=== PATIENT | female | born 1960 | race Caucasian/White ===

== ENCOUNTER → 2017-07-22 | Outpatient (CLI) | payer OTHER ==
[~2017-07-22] MED LIST: FOLI400T PO; HYDR-3533 PO; VITA1000 PO
[2017-07-22 11:59] LABS: AUTOMATED NEUTROPHIL # 9.8 TH/MM3 (1.8-7.7); BASOPHIL # 0.1 TH/MM3 (0-0.2); BASOPHIL % 0.6 % (0.0-2.0); EOSINOPHIL # 0.1 TH/MM3 (0-0.4); HEMATOCRIT 43.1 % (35.0-46.0); HEMO FLAGS DIFF FINAL; LYMPH % 14.2 % (9.0-44.0); LYMPHOCYTE # 1.8 TH/MM3 (1.0-4.8); MEAN CELL VOLUME 95.7 FL (80.0-100.0); MEAN CORPUSCULAR HEMOGLOBIN 32.1 PG (27.0-34.0); MEAN CORPUSCULAR HGB CONC 33.6 % (32.0-36.0); MONO % 7.3 % (0.0-8.0); NEUT % 76.9 % (16.0-70.0); PLATELET COUNT 418 TH/MM3 (150-450); RED BLOOD COUNT 4.51 MIL/MM3 (4.00-5.30); RED CELL DISTRIBUTION WIDTH 14.1 % (11.6-17.2); WHITE BLOOD COUNT 12.8 TH/MM3 (4.0-11.0)
[2017-07-22 12:09] LABS: APTT (PATIENT) 31.2 SEC (24.3-30.1); PROTHROMBIN TIME - PATIENT 11.2 SEC (9.8-11.6)
[2017-07-22 12:26] LABS: ANION GAP 6 MEQ/L (5-15); AST (GOT) 17 U/L (15-37); BICARBONATE 29.1 MEQ/L (21.0-32.0); BLOOD UREA NITROGEN 8 MG/DL (7-18); CHLORIDE 101 MEQ/L (98-107); GLOMERULAR FILTRATION RATE 110 ML/MIN (>89); GLUCOSE,FASTING 82 MG/DL (74-99); POTASSIUM 4.4 MEQ/L (3.5-5.1); SODIUM (NA) 136 MEQ/L (136-145)
[2017-07-22 12:28] LABS: ALT (GPT) 23 U/L (10-53)
[2017-07-22 12:30] LABS: ALKALINE PHOSPHATASE 93 U/L (45-117); TOTAL BILIRUBIN ADULT 0.2 MG/DL (0.2-1.0)
--- NOTE | 2017-07-23 22:03 | EKG ---
Date Performed: 07/22/2017 Time Performed: 10:23:16 PTAGE: 56 years EKG: Sinus rhythm LEFT ATRIAL ENLARGEMENT ABNORMAL ECG NO PREVIOUS TRACING DOCTOR: Bi Blakely Interpretating Date/Time 07/23/2017 21:44:39
== END ==
LOC: CPRE 09:37
PROVIDERS: ATTEND Obstetrics & Gynecology Gynecologic Oncology
DX: Z01.810 Encounter for preprocedural cardiovascular examination (principal); Z01.812 Encounter for preprocedural laboratory examination; R19.09 Other intra-abdominal and pelvic swelling, mass and lump; R94.31 Abnormal electrocardiogram [ECG] [EKG]
CPT/HCPCS: 36415; 80053; 85025; 85610; 85730; 93005

== ENCOUNTER 2017-08-02 08:07 | Inpatient (IN) | payer OTHER ==
[~2017-08-02] VITALS: Ht 172.7 cm; Wt 64.6 kg
[~2017-08-02 08:07] MED LIST changes: -HYDR-3533 PO
[2017-08-02] MEDS ORDERED: SODIUM CHLORID 0.9% 500 ML IV PRN (08:45)
[2017-08-02] MEDS ORDERED: CHLORHEXIDINE GLUCONATE 2 % 1 PACK (2 CLOTHS) TOPICAL PRN (08:45)
[2017-08-02] MEDS ORDERED: INSULIN HUMAN REGULAR 1,000 UNITS/10 ML VIAL SQ PRN (08:45)
[2017-08-02] MEDS ORDERED: METOPROLOL TARTRATE 25 MG TAB PO PRN (08:45)
[2017-08-02] MEDS ORDERED: LACTATED RINGER'S 1000 ML IV PRN (08:45)
[2017-08-02] MEDS ORDERED: POVIDONE IODINE 5% (ANTISEPSIS KIT) 4 APPLICATIONS EACH NARE PRN (08:45)
[2017-08-02] MEDS ORDERED: HEPARIN SODIUM - SQ 10,000 UNITS/ML VIAL SQ SCH (09:15)
[2017-08-02] MEDS ORDERED: LEVOFLOXACIN 500 MG PREMIX INJ 100 ML IV SCH (09:15)
[2017-08-02] MEDS ORDERED: metroNIDAZOLE 500 MG INJ 100 ML IV SCH (09:15)
[2017-08-02] MEDS ORDERED: ACETAMINOPHEN 1000 MG/100 ML 100 ML IV ONE (12:39)
[2017-08-02] MEDS ORDERED: HYDROmorphone HCL PF 2 MG/ML VIAL ONE (15:10)
[2017-08-02] MEDS ORDERED: SODIUM CHLORIDE 0.9% FLUSH 10 ML FLUSH IV FLUSH PRN ×2 (16:00→16:15)
[2017-08-02] MEDS ORDERED: diphenhydrAMINE HCL 25 MG CAP PO PRN (16:00)
[2017-08-02] MEDS ORDERED: oxyCODONE/ACETAMINOPHEN 5 MG/325 MG TAB PO PRN ×2 (16:00)
[2017-08-02] MEDS ORDERED: LORazepam 0.5 MG TAB PO PRN (16:00)
[2017-08-02] MEDS ORDERED: ONDANSETRON HCL 4 MG/2 ML VIAL IVP PRN (16:00)
[2017-08-02] MEDS ORDERED: NALOXONE HCL 0.4 MG/ML AMP IV PUSH PRN (16:15)
[2017-08-02] MEDS ORDERED: MORPHINE SULFATE 30 MG/30 ML PCA IV SCH (16:15)
[2017-08-02] MEDS ORDERED: SUGAMMADEX SODIUM 200 MG/2 ML VIAL IV PUSH ONE ×2 (16:21)
[2017-08-02] MEDS: KETOROLAC TROMETHAMINE 30 MG/ML (IVP) VIAL IVP SCH ×2 (16:50→22:06)
[2017-08-02] MEDS ORDERED: *morphine SULFATE 8 MG/ML PERIprocedure ONLY ONE ×2 (17:25→17:47)
[2017-08-02] MEDS: D5-1/2 NS + KCL 20 MEQ INJ 1,000 ML IV SCH ×2 (17:31→22:06)
[2017-08-02] MEDS ORDERED: DO NOT ADM ANY ANTICOAGULANT DRUGS PRN (17:45)
[2017-08-02 18:35] VITALS: BP 114/78; PULSE 64; RESP 16; TEMP 95.6
[2017-08-02 20:00] VITALS: BP 110/66; PULSE 70; RESP 16; TEMP 97.4; O2SAT 99
[2017-08-02 20:12] VITALS: PULSE 52
[2017-08-02] MEDS ORDERED: SODIUM CHLORIDE 0.9% FLUSH 10 ML FLUSH IV FLUSH SCH (21:00)
[2017-08-02] MEDS: PCA - TOTAL MG MORPHINE DELIVERED PER SHIFT SCH (22:00)
[2017-08-02] MEDS: SODIUM CHLORIDE 0.9% FLUSH 10 ML FLUSH IV FLUSH SCH (22:07)
[2017-08-02 23:50] VITALS: BP 124/77; PULSE 67; RESP 18; TEMP 97.6; O2SAT 98
[2017-08-03] VITALS (9 sets, daily range): BP systolic 96–136; BP diastolic 62–79; PULSE 55–68; RESP 18; TEMP 97.5–98; O2SAT 93–97
[2017-08-03] MEDS: KETOROLAC TROMETHAMINE 30 MG/ML (IVP) VIAL IVP SCH ×4 (04:00→21:13)
[2017-08-03] MEDS: PCA - TOTAL MG MORPHINE DELIVERED PER SHIFT SCH ×3 (06:00→22:00)
[2017-08-03 06:52] LABS: AUTOMATED NEUTROPHIL # 13.5 TH/MM3 (1.8-7.7); BASOPHIL % 0.2 % (0.0-2.0); HEMATOCRIT 38.8 % (35.0-46.0); HEMO FLAGS DIFF FINAL; LYMPH % 5.7 % (9.0-44.0); LYMPHOCYTE # 0.9 TH/MM3 (1.0-4.8); MEAN CELL VOLUME 95.5 FL (80.0-100.0); MEAN CORPUSCULAR HEMOGLOBIN 32.4 PG (27.0-34.0); MONO % 6.7 % (0.0-8.0); NEUT % 87.4 % (16.0-70.0); PLATELET COUNT 350 TH/MM3 (150-450); RED BLOOD COUNT 4.07 MIL/MM3 (4.00-5.30); RED CELL DISTRIBUTION WIDTH 13.9 % (11.6-17.2); WHITE BLOOD COUNT 15.5 TH/MM3 (4.0-11.0)
[2017-08-03 07:26] LABS: BICARBONATE 25.5 MEQ/L (21.0-32.0); POTASSIUM 4.3 MEQ/L (3.5-5.1)
--- NOTE | 2017-08-03 08:22 | HHI.PR ---
Subjective . c/o being tired, sore c/w surgery. no other c/o Objective . afeb vss, uop . 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 POD #1 doing well in early post-op period finding s reviewed, Q&A increase OOB, spirometry continue luis & SPOOL MAKER x 24 hours adat Maeve Balderas MD Aug 03, 2017 08:22
[2017-08-03] MEDS: D5-1/2 NS + KCL 20 MEQ INJ 1,000 ML IV SCH ×3 (08:58→22:18)
[2017-08-03] MEDS: SODIUM CHLORIDE 0.9% FLUSH 10 ML FLUSH IV FLUSH SCH ×2 (09:00→21:13)
--- NOTE | 2017-08-03 10:57 | MP ---
cc: MALCOM HOFFMAN M.D., KELLY L. MD DATE OF SURGERY: 08/02/2017 PREOPERATIVE DIAGNOSIS 1. Large complex abdominopelvic mass. 2. Right hydronephrosis. POSTOPERATIVE DIAGNOSIS 1. Large complex left ovarian mass. 2. Intraperitoneal adhesions. 3. Right hydronephrosis. PROCEDURE 1. Exploratory laparotomy. 2. Resection of a 37 cm, 18-1/2 pound complex left ovarian mass, bilateral salpingo-oophorectomy 3. Hysterectomy. 4. Omentectomy. 5. Lysis of adhesions. SURGEON Maeve Balderas. AGENCY DEVELOPMENT MANAGER [place] [employer]. ANESTHESIA General endotracheal. ESTIMATED BLOOD LOSS 500 cc. URINE OUTPUT 450 cc. IV FLUIDS 2400 cc. HISTORY This is a 56-year-old female who for many months had progressive pelvic pressure, increasing pelvic and abdominal distention, found on exam and imaging to have a very large complex mass. At the time of imaging several weeks ago it was estimated to be at least 28 cm in greatest dimension. She was counseled and recommended for exploratory laparotomy. She was seen again in the pre-op holding area where the findings are again reviewed. On exam the mass had increased in size even further since recent evaluation. This is her impression as well as my impression on physical exam. Irrespective of the pathology she states that she is in favor of a complete hysterectomy and bilateral salpingo-oophorectomy. She understands that if malignancy is detected or suspected additional staging biopsies will be recommended. She and her expressed good understanding and agreed to move forward with surgery. FINDINGS At the time of exploration a smooth-walled, somewhat lobulated complex mass fills the pelvis and abdomen, extends to the level of the sternum, extends from pelvic sidewall to pelvic sidewall with extension into the posterior cul-de-sac and extends from the abdominal sidewall to sidewall. The mass is determined to be arising from and replacing the left ovary. The omentum is densely adherent to the mass ventrally into the abdominal wall with some adhesions along the left lateral side. The uterus itself grossly appears normal. The right tube and ovary grossly appear normal. The liver and diaphragm edges are smooth. There were no peritoneal implants. The large and small bowel, appendix and adjacent mesentery were normal. There were no appreciably enlarged lymph nodes. There was right hydronephrosis that almost immediately improved as soon as the mass was resected as it was due to extrinsic compression, but no other compromise to either ureter was detected. 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 At the time of removal the pathologist measured it at 37 cm and it weighed approximately 18-1/2 pounds. The preliminary path favored benign, although given the extensive amount of tissue final pathology will be pending. However, there is no evidence of borderline features. No evidence of malignancy on preliminary frozen section. It is noted that there was a defect in the capsule at the apex where there appeared to be some fluid leaking posterior to the mass into the peritoneal cavity. Otherwise the capsule was intact and remained so with surgical resection. DETAILS OF PROCEDURE She was taken to the operating room and placed in dorsal lithotomy position. After general endotracheal anesthesia was administered a timeout was undertaken. She was identified by sight recognition and hospital ID bracelet and the proposed procedure was reviewed and confirmed. She was carefully positioned in Evaristo stirrups. Her arms were out to the sides. She was prepped and draped in sterile fashion. Ioban was used to cover the abdominal wall. A Perry catheter had been placed. An orogastric tube was in the stomach on suction. A ventral incision was made from the symphysis to the umbilicus and carried down to level of the fascia. The fascia was entered. The rectus muscles were in the midline. The peritoneal cavity was entered. A small amount of ascites fluid was gathered for cytology. Sharp dissection was used to help initiate adhesiolysis and gain entrance into the peritoneal cavity. The omentum was densely adherent along the ventral wall of the mass into the left abdominal and pelvic sidewalls. It necessitated surgical removal and so nonvascular attachments were taken down from the transverse colon with cautery. Vascular attachments were isolated, sealed and transected using the Enseal device in a stepwise fashion until the infracolic omentum was removed. Sharp dissection and cautery was then used to mobilize the omentum from its attachments to the mass and to the left pelvic sidewall, such that the omentum was now removed and sent for permanent histopathologic analysis. Manual palpation and inspection was such that the incision had to be extended to allow intact delivery of this mass. The incision was extended above the umbilicus several centimeters. Blunt dissection was used to free up adhesions circumferentially around the mass and with manipulation, elevation and countertraction we were able to deliver the mass through the abdominal wall incision. This clarified its origin from the left ovary. The left round ligament was doubly suture ligated and transected. The anterior and posterior leafs of the broad ligament were opened. The left ureter was identified. The left infundibulopelvic ligament was clamped. The specimen side of the vascular pedicles were sealed with the Enseal device. The pedicle was then cut and doubly suture ligated. The left utero-ovarian ligament was isolated and clamped. The specimen side and the hysterectomy side were sealed with the Enseal device allowing removal of the mass which was sent for frozen section analysis with findings as described above. The Bookwalter retractor was then assembled. Lap pads were used to assist in surgical exposure. The right round ligament was doubly suture ligated and transected. The anterior and posterior leafs of the broad ligament were opened. The right ureter was identified. It was dilated consistent with pre-op imaging, but now that the mass had been removed there was no additional compromise to the ureter. It was peristalsis nicely and by the end of the case it had actually seemed to reduce in diameter just from alleviating the external mass effect. The right infundibulopelvic ligament was isolated. The intervening peritoneum was opened. The infundibulopelvic ligament was clamped, cut, doubly suture ligated and the specimen side was sealed with the Enseal device. The uterine vessels were skeletonized bilaterally. The posterior peritoneum was opened along the left side of the uterus and cervix and the vesicouterine peritoneum was dissected off the lower uterine segment and cervix. Additional adhesions were taken down due to her prior section. The uterine vessels once skeletonize were now clamped, cut and suture ligated. The cardinal, paracervical and uterosacral ligaments were taken down in a stepwise fashion where they were isolated, clamped, cut and suture ligated until curved Zavaleta clamps could be placed below the cervix at the lateral vaginal angles. The specimen was then removed with sharp dissection, cutting below the cervix across the vaginal apex. The specimen was inspected and the entire cervix was noted to be removed. The specimen included uterus, cervix and the attached right tube and ovary. The vaginal cuff was secured at the corners with interrupted [id number] 0 Vicryl sutures and then the vaginal cuff was closed with interrupted [id number] 0 Vicryl sutures including the edge of the uterosacral ligaments at the corners and posterior peritoneum which rendered the cuff completely hemostatic and well-supported. The pelvis and abdomen were thoroughly irrigated. Small bleeders were rendered hemostatic with the bipolar cautery. Frozen section came back showing no evidence of malignancy or borderline features and it was felt that all reasonable surgical objectives had been completed. The lap pads and Bookwalter retractor were removed. The anatomy was again surveyed. There was no adenopathy, no implants, nothing to suggest abnormality beyond the mass. Inspection confirmed there were no remaining foreign objects in the peritoneal cavity. Preliminary counts were correct and attention was directed toward closing. The abdominal fascia was closed with a running looped 0 PDS suture starting at the apices and meeting in the midpoint where the sutures were tied. The subcutaneous tissue was irrigated. Sarai's fascia was re-approximated with interrupted 2-0 Vicryl sutures bringing the skin in close proximity without tension. The skin was then closed with a running 3-0 subcuticular Vicryl closure. The incision was reinforced with Steri-Strips and covered with dry sterile dressing. Pelvic exam confirmed there were no remaining foreign objects in the vagina. Final counts were correct. She was returned to dorsal supine position and was pending reversal of anesthesia when I left the operating room to precede her to the post-anesthesia care unit. MD ALEJANDRO Lind/LEO /8:23 AM /10:30 AM JULIÁN
[2017-08-03] MEDS ORDERED: CALCIUM CARBONATE 500 MG CHEWABLE TAB PO PRN (21:15)
[2017-08-03] MEDS ORDERED: PANTOPRAZOLE SODIUM 40 MG VIAL IV PUSH ONE (21:15)
[2017-08-04] VITALS (7 sets, daily range): BP systolic 115–146; BP diastolic 74–88; PULSE 53–78; RESP 16–17; TEMP 97.7–98; O2SAT 94–98
[2017-08-04] MEDS: KETOROLAC TROMETHAMINE 30 MG/ML (IVP) VIAL IVP SCH ×4 (04:16→21:04)
[2017-08-04] MEDS: PCA - TOTAL MG MORPHINE DELIVERED PER SHIFT SCH (05:53)
--- NOTE | 2017-08-04 08:55 | PD.ONC.PN ---
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 has been OOB to chair and ambulate urinated X 2 this morning eating little amounts at a time taking in fluids no n/v Objective Data Date Time Temp Pulse Resp B/P (MAP) Pulse Ox O2 Delivery O2 Flow Rate FiO2 08/04/17 05:53 16 08/04/17 04:00 97.8 78 17 144/84 (104) 94 08/04/17 00:00 98.0 67 16 115/74 (88) 95 08/03/17 22:00 17 08/03/17 20:07 65 08/03/17 20:00 97.9 68 18 118/68 (85) 93 08/03/17 16:58 98.0 67 18 136/79 (98) 95 08/03/17 13:25 97.7 67 18 98/62 (74) 97 08/03/17 13:23 17 08/03/17 08:55 97.8 64 18 96/63 (74) 95 08/04/17 08/04/17 08/04/17 07:00 15:00 23:00 Output Total 600 ml Balance -600 ml Result Diagram: 08/03/17 0503 08/03/17 0503 Laboratory Results Laboratory Tests Test 08/03/17 05:03 White Blood Count 15.5 TH/MM3 Red Blood Count 4.07 MIL/MM3 Hemoglobin 13.2 GM/DL Hematocrit 38.8 % Mean Corpuscular Volume 95.5 FL Mean Corpuscular Hemoglobin 32.4 PG Mean Corpuscular Hemoglobin Concent 34.0 % Red Cell Distribution Width 13.9 % Platelet Count 350 TH/MM3 Mean Platelet Volume 8.7 FL Neutrophils (%) (Auto) 87.4 % Lymphocytes (%) (Auto) 5.7 % Monocytes (%) (Auto) 6.7 % Eosinophils (%) (Auto) 0.0 % Basophils (%) (Auto) 0.2 % Neutrophils # (Auto) 13.5 TH/MM3 Lymphocytes # (Auto) 0.9 TH/MM3 Monocytes # (Auto) 1.0 TH/MM3 Eosinophils # (Auto) 0.0 TH/MM3 Basophils # (Auto) 0.0 TH/MM3 CBC Comment DIFF FINAL Differential Comment Blood Urea Nitrogen 6 MG/DL Creatinine 0.56 MG/DL Random Glucose 203 MG/DL Calcium Level 8.1 MG/DL Sodium Level 132 MEQ/L Potassium Level 4.3 MEQ/L Chloride Level 102 MEQ/L Carbon Dioxide Level 25.5 MEQ/L Anion Gap 5 MEQ/L Estimat Glomerular Filtration Rate 112 ML/MIN Administered Medications Medications (Trade) Dose Ordered Sig/Karel Route PRN Reason Start Time Stop Time Status Last Admin Dose Admin Povidone Iodine (Betadine 5% Antisepsis Kit) 1 applic FAN BLADE TRUER PRN EACH NARE SEE LABEL COMMENTS 08/02/17 08:45 08/05/17 08:44 08/02/17 09:30 Chlorhexidine Gluconate (Chlorhexidine 2% Cloth) 3 pack FAN BLADE TRUER PRN TOPICAL SEE LABEL COMMENTS 08/02/17 08:45 08/05/17 08:44 08/02/17 08:30 Potassium Chloride/Dextrose/ Sod Cl 1,000 ml @ 125 mls/hr Q8H IV 08/02/17 15:56 08/03/17 22:18 Sodium Chloride (NS Flush) 2 ml BID IV FLUSH 08/02/17 21:00 08/03/17 21:13 Ketorolac Tromethamine (Toradol Inj) 30 mg Q6H IVP 08/02/17 16:00 08/05/17 10:01 08/04/17 04:16 Calcium Carbonate (Tums Chew) 500 mg QID PRN PO HEARTBURN 08/03/17 21:15 08/03/17 21:13 Objective Remarks GENERAL: Well-nourished, well-developed patient. SKIN: Warm and dry. HEAD: Normocephalic. EYES: No scleral icterus. No injection or drainage. CARDIOVASCULAR: Regular rate and rhythm without murmurs. RESPIRATORY: Breath sounds equal bilaterally. No accessory muscle use. GASTROINTESTINAL: Abdomen soft, dressing C/D/I EXTREMITIES: No cyanosis, or edema. MUSCULOSKELETAL: Adequate muscle tone. NEUROLOGICAL: No obvious focal deficit. Awake, alert, and oriented x3. PSYCHIATRIC: Appropriate mood and affect; insight and judgment normal. Assessment/Plan Problem List: (1) Post-operative state ICD Codes: Z98.890 - Other specified postprocedural states Status: Acute Plan: s/p X lap hysterectomy with BSO and resection of large pelvic mass D/C [employer]IST today and change to Percocet for pain encourage intake decrease IVF to KVO OOB to ambulate luis has been d/c'd anticipate discharge home in next 24 hours Attending Statement Discussed with Dr. Balderas and he is in agreement. Phillip Montero Aug 04, 2017 08:55
[2017-08-04] MEDS: SODIUM CHLORIDE 0.9% FLUSH 10 ML FLUSH IV FLUSH SCH ×2 (09:20→20:57)
[2017-08-04] MEDS: D5-1/2 NS + KCL 20 MEQ INJ 1,000 ML IV SCH (09:51)
[2017-08-05 00:14] VITALS: PULSE 64
[2017-08-05 00:20] VITALS: BP 137/81; PULSE 62; RESP 20; TEMP 98.1; O2SAT 97
[2017-08-05 04:11] VITALS: PULSE 59
[2017-08-05] MEDS: KETOROLAC TROMETHAMINE 30 MG/ML (IVP) VIAL IVP SCH ×2 (04:30→10:24)
[2017-08-05 04:35] VITALS: BP 157/95; PULSE 66; RESP 17; TEMP 98.2; O2SAT 97
[2017-08-05] MEDS ORDERED: OXYC1TAB63 PO (07:31)
[2017-08-05 07:41] VITALS: BP 138/77; PULSE 63; RESP 16; TEMP 97.9; O2SAT 96
--- NOTE | 2017-08-05 07:47 | HHI.DS ---
Discharge Summary Admission Date Aug 02, 2017 at 08:07 Discharge Date: Aug 05, 2017 Admitting Diagnosis pelvic mass (1) Pelvic mass in female ICD Codes: R19.00 - Intra-abdominal and pelvic swelling, mass and lump, unspecified site (2) Post-operative state Diagnosis: Principal ICD Codes: Z98.890 - Other specified postprocedural states Status: Acute Procedures X Lap hysterectomy and BSO with resection of pelvic mass and omentectomy Brief History This is a 56 year old female who noticed over the past several months that her abdomen was becoming distended. She had imaging that shown a large pelvic mass and presented to [facility] for recommendations. She presented for definitive surgery on 08/02/17. CBC/BMP: 08/03/17 0503 08/03/17 0503 Significant Findings Laboratory Tests Test 08/03/17 05:03 White Blood Count 15.5 TH/MM3 (4.0-11.0) Neutrophils (%) (Auto) 87.4 % (16.0-70.0) Lymphocytes (%) (Auto) 5.7 % (9.0-44.0) Neutrophils # (Auto) 13.5 TH/MM3 (1.8-7.7) Lymphocytes # (Auto) 0.9 TH/MM3 (1.0-4.8) Monocytes # (Auto) 1.0 TH/MM3 (0-0.9) Blood Urea Nitrogen 6 MG/DL (7-18) Random Glucose 203 MG/DL (74-106) Calcium Level 8.1 MG/DL (8.5-10.1) Sodium Level 132 MEQ/L (136-145) PE at Discharge A X O X 3 in NAD sitting up in chair heart: RRR lungs: CTA abd: dressing removed and SS c/d/i no s/s of infection or drainage bilat LE: no edema Pt Condition on Discharge: Good Discharge Disposition: Discharge Home Discharge Instructions DIET: Follow Instructions for: As Tolerated, No Restrictions Activities you can perform: Pelvic Rest Activities to avoid: Lifting/Bending, Strenuous Activity, Sexual Activity Additional Activity Instructio: no heavy lifting/pushing or pulling > 5 pounds Follow up Referrals: Appointment for Follow Up - 2 Weeks @ [facility] New Medications: Oxycodone-Acetaminophen (Oxycodone-Acetaminophen) 5-325 mg Tab 1 TAB PO Q4H PRN for PAIN SCALE 1 TO 7 for 7 Days, #42 TAB Continued Medications: Cholecalciferol (Vitamin D-1000) 1,000 Unit Tab 1000 UNITS PO WEEKLY for Nutritional Supplement, #1 BOTTLE 0 Refills Folic Acid (Folic Acid) 0.4 Mg Tab 400 MCG PO DAILY for Nutritional Supplement, TAB 0 Refills Phillip Montero Aug 05, 2017 07:46
[2017-08-05] MEDS: SODIUM CHLORIDE 0.9% FLUSH 10 ML FLUSH IV FLUSH SCH (10:24)
== END 2017-08-05 12:08 | disposition home or self-care (01) | DRG 742 ==
LOC: HSDI 08:07 → HCIS 18:02
PROVIDERS: ADMIT Obstetrics & Gynecology Gynecologic Oncology; ATTEND Obstetrics & Gynecology Gynecologic Oncology
PROC: 0DBU0ZZ Excision of Omentum, Open Approach (ICD-10-PCS; 2017-08-02)
PROC: 0UT70ZZ Resection of Bilateral Fallopian Tubes, Open Approach (ICD-10-PCS; 2017-08-02)
PROC: 0UT90ZZ Resection of Uterus, Open Approach (ICD-10-PCS; 2017-08-02)
PROC: 0UTC0ZZ Resection of Cervix, Open Approach (ICD-10-PCS; 2017-08-02)
PROC: 0UT20ZZ Resection of Bilateral Ovaries, Open Approach (ICD-10-PCS; principal; 2017-08-02 12:48)
DX: D27.1 Benign neoplasm of left ovary (principal); N13.30 Unspecified hydronephrosis; K66.0 Peritoneal adhesions (postprocedural) (postinfection); F17.210 Nicotine dependence, cigarettes, uncomplicated; Z88.0 Allergy status to penicillin
CPT/HCPCS: 80048; 85025; 86850; 86900; 86901; 86920; 88305; 88307; 88331; 94150; C9113; J0131; J1170; J1644; J1885; J1956; J2270; J3480; J7120